=== PATIENT | male | born 1990 | race Two or more races ===

== ENCOUNTER 2017-05-08 23:09 | Emergency (ER) | payer SELFPAY ==
[~2017-05-08] VITALS: Ht 170.2 cm; Wt 77.1 kg
[2017-05-09 00:41] VITALS: BP 124/75
[2017-05-09] MEDS ORDERED: PRED50TA PO (00:46)
[2017-05-09] MEDS ORDERED: AZIT250T PO (00:46)
--- NOTE | 2017-05-09 00:46 | PHYS DOC ---
Past Medical History Past Medical History: No Pertinent History Past Surgical History: No Surgical History Alcohol Use: None Drug Use: None Adult General Chief Complaint Chief Complaint: Congestion HPI HPI Patient is a 26 year old M who presents with increased sinus pressure and sinus drainage for the past week. Patient denies any fevers. Patient is not taking any [id number] medication for this. Patient denies any chest pain returns of breath. Patient denies other symptoms. Review of Systems Review of Systems GEN: Denies fevers, chills, sweats HEENT: Sinus drainage CV: Denies chest pain RESP: Denies shortness of air, cough GI: Denies n/v/d NEURO: Denies confusion, dizziness MSK: Denies weakness, joint pain/swelling Physical Exam Physical Exam GEN.: No apparent distress. Alert and oriented. HEENT: Head is normocephalic, atraumatic, erythematous and swollen turbinates bilaterally in the nose, TMs clear bilaterally, there is palpation over the maxillary sinuses bilaterally NECK: Supple. LUNGS: CTAB. HEART: RRR, S1, S2 present. Peripheral pulses intact ABDOMEN: Soft, nontender. Positive bowel sounds. EXTREMITIES: Without any cyanosis. NEUROLOGIC: Normal speech, normal tone PSYCHIATRIC: Normal affect, normal mood. SKIN: No ulcerations Current Patient Data Vital Signs Vital Signs Date Time Temp Pulse Resp B/P (MAP) Pulse Ox O2 Delivery O2 Flow Rate FiO2 05/08/17 23:55 99.1 72 126/80 (95) 96 Room Air 99.1 EKG EKG [] Radiology/Procedures Radiology/Procedures [] Course & Med Decision Making Course & Med Decision Making Pertinent Labs and Imaging studies reviewed. (See chart for details) MDM: After reviewing the chart, CC/HPI/PMH, physical exam, I believe the patient has acute sinusitis not warranted any further workup and/or admission at this time. I do not believe the patient needs a CT scan of his head and can be treated as an outpatient with steroids and antibiotics. Additional verbal discharge instructions were provided to the patient and that if symptoms get worse or any new symptoms arise that are worrisome to the patient he is to return to the emergency room immediately [] Dragon Disclaimer Dragon Disclaimer This electronic medical record was generated, in whole or in part, using a voice recognition dictation system. Departure Departure Impression: Primary Impression: Acute sinusitis Disposition: 01 HOME, SELF-CARE Condition: IMPROVED Referrals: NO PCP (PCP) Patient Instructions: Sinusitis Additional Instructions: Please follow up with her family doctor next one to 2 days Scripts Azithromycin (ZITHROMAX) 250 Mg Tablet 1 PKG PO UD, #6 TAB Prov: LANRE MAYBERRY DO 05/09/17 Prednisone (PREDNISONE) 50 Mg Tablet 1 TAB PO DAILY, #5 TAB Prov: LANRE MAYBERRY DO 05/09/17 LANRE MAYBERRY DO May 09, 2017 00:46
== END 2017-05-09 00:50 | disposition home or self-care (01) ==
LOC: ER 23:09
DX: J01.00 Acute maxillary sinusitis, unspecified (principal)
CPT/HCPCS: 99283